=== PATIENT | male | born 1960 | race African-American/Black ===

== ENCOUNTER 2018-02-20 22:33 | Emergency (ER) | payer SELFPAY ==
[~2018-02-20] VITALS: Ht 185.4 cm; Wt 121.1 kg
[2018-02-20 23:12] LABS: BASO # 0.1 x10^3/uL (0.0-0.2); BASO % 1 % (0-3); EOS # 0.5 x10^3/uL (0.0-0.7); EOS % 7 % (0-3); HEMATOCRIT 46.8 % (39.0-53.0); HEMOGLOBIN 15.5 g/dL (13.0-17.5); LYMPH # 2.6 x10^3/uL (1.0-4.8); LYMPH % 38 % (24-48); MEAN CORPUSCULAR HEMOGLOBIN 31 pg (25-35); MEAN CORPUSCULAR HGB CONC 33 g/dL (31-37); MEAN CORPUSCULAR VOLUME 93 fL (79-100); MONO # 0.5 x10^3/uL (0.0-1.1); MONO % 7 % (0-9); NEUT # 3.3 x10^3uL (1.8-7.7); NEUT % 47 % (31-73); PLATELET COUNT 235 x10^3/uL (140-400); RED BLOOD COUNT 5.05 x10^6/uL (4.30-5.70); RED CELL DISTRIBUTION WIDTH 13.4 % (11.5-14.5)
[2018-02-20 23:28] LABS: ALBUMIN 4.1 g/dL (3.4-5.0); ALBUMIN/GLOBULIN RATIO 1.1 (1.0-1.7); CALCIUM 8.8 mg/dL (8.5-10.1); CREATININE 1.6 mg/dL (0.7-1.3); GFR 54.6; MAGNESIUM 2.1 mg/dL (1.8-2.4); POTASSIUM 3.3 mmol/L (3.5-5.1); TOTAL BILIRUBIN 0.6 mg/dL (0.2-1.0); TOTAL PROTEIN 7.9 g/dL (6.4-8.2)
--- NOTE | 2018-02-20 23:49 | RAD ---
PORTABLE CHEST 1V dated 02/20/2018 10:24 PM. Comparison: None. Clinical Indication: Palpitations. Findings: Single upright portable exam performed. Heart and mediastinal contours are within normal limits. Lungs are clear without focal consolidation. Vascular interstitium within normal limits. No pleural effusion or pneumothorax. Impression: Negative portable chest. Electronically signed by: Garett Sanders MD (02/20/2018 11:46 PM) [facility]
[2018-02-21 00:11] VITALS: BP 128/75
--- NOTE | 2018-02-21 00:22 | PHYS DOC ---
Past History Past Medical History: Other Past Surgical History: Other Alcohol Use: None Drug Use: None Adult General Chief Complaint Chief Complaint: Palpitations HPI HPI Patient is a 57-year-old male who presents with complaint of palpitations that he indicates had occurred yesterday and again occurred today. He indicates that he has been using some ndie-qot-ottssah supplements and states that after reading the potential side effects, he indicates that some of those side effects or what he's been experiencing. He states that it feels like his heart is beating very fast. He denies any actual chest pain. He also denies any nausea or vomiting. Patient states that nothing seems to worsen or improve the symptoms. He states that currently the palpitations are gone. He states that during the palpitations however he gets a little bit lightheaded and feels like he might pass out. He indicates that he did not actually pass out however. He states that the symptoms of palpitations lasted for about 10-15 minutes and then resolved spontaneously. Review of Systems Review of Systems Constitutional: Denies fever or chills [] Respiratory: Denies cough or shortness of breath [] Cardiovascular: Complains of palpitations[] GI: Denies abdominal pain, nausea, vomiting [] Neurologic: Denies headache, focal weakness or sensory changes [] All other systems were reviewed and found to be within normal limits, except as documented in this note. Current Medications Current Medications Current Medications Medications (Trade) Dose Ordered Sig/[facility] Start Time Stop Time Status Last Admin Dose Admin Potassium Chloride (Klor-Con) 20 meq 1X ONCE 02/21/18 00:15 02/21/18 00:16 UNV Physical Exam Physical Exam Constitutional: Well developed, well nourished, no acute distress, non-toxic appearance. [] HENT: Normocephalic, atraumatic, bilateral external ears normal, oropharynx moist, no oral exudates, nose normal. [] Eyes: PERRLA, EOMI, conjunctiva normal, no discharge. [] Neck: Normal range of motion, no tenderness, supple, no stridor. [] Cardiovascular:Heart rate regular rhythm [] Lungs & Thorax: Bilateral breath sounds clear to auscultation [] Abdomen: Bowel sounds normal, soft, no tenderness. [] Skin: Warm, dry, no erythema, no rash. [] Extremities: No tenderness, no cyanosis, no clubbing, ROM intact, no edema. [] Neurologic: Alert and oriented X 3, normal motor function, normal sensory function, no focal deficits noted. [] Current Patient Data Vital Signs Vital Signs Date Time Temp Pulse Resp B/P (MAP) Pulse Ox O2 Delivery O2 Flow Rate FiO2 02/20/18 22:42 82 20 99 Room Air Lab Results Laboratory Tests Test 02/20/18 22:40 White Blood Count 7.0 x10^3/uL (4.0-11.0) Red Blood Count 5.05 x10^6/uL (4.30-5.70) Hemoglobin 15.5 g/dL (13.0-17.5) Hematocrit 46.8 % (39.0-53.0) Mean Corpuscular Volume 93 fL (79-100) Mean Corpuscular Hemoglobin 31 pg (25-35) Mean Corpuscular Hemoglobin Concent 33 g/dL (31-37) Red Cell Distribution Width 13.4 % (11.5-14.5) Platelet Count 235 x10^3/uL (140-400) Neutrophils (%) (Auto) 47 % (31-73) Lymphocytes (%) (Auto) 38 % (24-48) Monocytes (%) (Auto) 7 % (0-9) Eosinophils (%) (Auto) 7 % (0-3) H Basophils (%) (Auto) 1 % (0-3) Neutrophils # (Auto) 3.3 x10^3uL (1.8-7.7) Lymphocytes # (Auto) 2.6 x10^3/uL (1.0-4.8) Monocytes # (Auto) 0.5 x10^3/uL (0.0-1.1) Eosinophils # (Auto) 0.5 x10^3/uL (0.0-0.7) Basophils # (Auto) 0.1 x10^3/uL (0.0-0.2) Sodium Level 141 mmol/L (136-145) Potassium Level 3.3 mmol/L (3.5-5.1) L Chloride Level 103 mmol/L (98-107) Carbon Dioxide Level 28 mmol/L (21-32) Anion Gap 10 (6-14) Blood Urea Nitrogen 15 mg/dL (8-26) Creatinine 1.6 mg/dL (0.7-1.3) H Estimated GFR (Cockcroft-Gault) 54.6 BUN/Creatinine Ratio 9 (6-20) Glucose Level 143 mg/dL (70-99) H Calcium Level 8.8 mg/dL (8.5-10.1) Magnesium Level 2.1 mg/dL (1.8-2.4) Total Bilirubin 0.6 mg/dL (0.2-1.0) Aspartate Amino Transferase (AST) 35 U/L (15-37) Alanine Aminotransferase (ALT) 35 U/L (16-63) Alkaline Phosphatase 73 U/L (46-116) Troponin I Quantitative < 0.017 ng/mL (0-0.055) XL-Vpx-S-Type Natriuretic Peptide 13 pg/mL (0-124) Total Protein 7.9 g/dL (6.4-8.2) Albumin 4.1 g/dL (3.4-5.0) Albumin/Globulin Ratio 1.1 (1.0-1.7) EKG EKG EKG demonstrates a normal sinus rhythm with rate of 83. No significant ST segment abnormalities are noted.[] Radiology/Procedures Radiology/Procedures [] Impressions: Chest x-ray demonstrates no acute process. Course & Med Decision Making Course & Med Decision Making Pertinent Labs and Imaging studies reviewed. (See chart for details) [] Dragon Disclaimer Dragon Disclaimer This electronic medical record was generated, in whole or in part, using a voice recognition dictation system. Departure Departure: Impression: Primary Impression: Palpitations Disposition: 01 HOME, SELF-CARE Condition: STABLE Referrals: PCP,NO (PCP) Patient Instructions: Palpitations Additional Instructions: Follow-up with your primary care provider in the next few days. Return to the emergency room if you have acute worsening of symptoms. JOSE E GARCÍA Jr. DO Feb 21, 2018 00:22
[2018-02-21 00:30] LABS: BACTERIA,URINE 0 /HPF (0-FEW); BILIRUBIN,URINE NEG (NEG); CLARITY,URINE CLEAR; COLOR,URINE YELLOW; GLUCOSE,URINE NEG (NEG); NITRITE,URINE NEG (NEG); UROBILINOGEN,URINE 0.2 mg/dL (0.2 mg/dL); WBC,URINE OCC /HPF (0-4)
[2018-02-21] MEDS ORDERED: POTASSIUM CHLORIDE 20 MEQ TABLET.ER. PO ONE (01:00)
--- NOTE | 2018-02-21 14:14 | EKG ---
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 POSSIBLY ABNORMAL ECG RI6.01 Unconfirmed report No previous ECG available for comparison Electronically Signed On 02-21-2018 16:01:56 MANAGER OF SOFTWARE by Rafat Jacobo
== END 2018-02-21 00:43 | disposition home or self-care (01) ==
LOC: ER 22:33
DX: R00.2 Palpitations (principal); R42 Dizziness and giddiness
CPT/HCPCS: 36415; 71045; 80053; 81001; 83735; 83880; 84484; 85025; 93005; 99285

== ENCOUNTER 2018-07-04 16:55 | Emergency (ER) | payer OTHER ==
[~2018-07-04] VITALS: Ht 185.4 cm; Wt 119.3 kg
[2018-07-04 17:38] LABS: BASO # 0.2 x10^3/uL (0.0-0.2); BASO % 2 % (0-3); EOS % 12 % (0-3); HEMATOCRIT 43.5 % (39.0-53.0); HEMOGLOBIN 14.5 g/dL (13.0-17.5); LYMPH # 2.1 x10^3/uL (1.0-4.8); LYMPH % 27 % (24-48); MEAN CORPUSCULAR HEMOGLOBIN 31 pg (25-35); MEAN CORPUSCULAR HGB CONC 33 g/dL (31-37); MEAN CORPUSCULAR VOLUME 93 fL (79-100); MONO # 0.7 x10^3/uL (0.0-1.1); MONO % 9 % (0-9); NEUT # 3.9 x10^3uL (1.8-7.7); NEUT % 50 % (31-73); PLATELET COUNT 229 x10^3/uL (140-400); RED BLOOD COUNT 4.68 x10^6/uL (4.30-5.70); RED CELL DISTRIBUTION WIDTH 13.6 % (11.5-14.5); WHITE BLOOD COUNT 7.8 x10^3/uL (4.0-11.0)
--- NOTE | 2018-07-04 17:45 | PHYS DOC ---
Past History Past Medical History: Other (ELIAN SINGH MD) Past Surgical History: Other (ELIAN SINGH MD) Smoking: Non-smoker Alcohol Use: None Drug Use: None (ELIAN SINGH MD) Adult General Chief Complaint Chief Complaint: DIZZY/LIGHT HEADED HPI HPI Patient is a 58 year old male who presents with complaining of episodes of dizziness and blurred vision. Patient states he felt dizzy after standing up at his work at 10:30 this morning with left blurred vision. Patient states he had chest tightness at the same time with marked shortness of breath and nausea with palpitation that last about 15 minutes and resolved spontaneously. Patient states he had another episode of the same symptom@1600 that last about 15 minutes. Patient states he does not feel like his normal yet but he does not have dizziness or blurred vision anymore. Patient states he had history of palpitation and was seen this emergency room but denied history of blurred vision and chest pain. Patient denies using drugs or prescribed medication and takes qyyx-ajp-zicyrqr medication for joint pain. (ELIAN SINGH MD) Review of Systems Review of Systems Constitutional: Denies fever or chills [] Eyes: Denies change in visual acuity, redness, or eye pain, reports blurred vision [] HENT: Denies nasal congestion or sore throat [] Respiratory: Denies cough or shortness of breath [] Cardiovascular: No additional information not addressed in HPI [] GI: Denies abdominal pain, nausea, vomiting, bloody stools or diarrhea [] : Denies dysuria or hematuria [] Musculoskeletal: Denies back pain or joint pain [] Integument: Denies rash or skin lesions [] Neurologic: Denies headache, focal weakness or sensory changes [] Endocrine: Denies polyuria or polydipsia [] All other systems were reviewed and found to be within normal limits, except as documented in this note. (ELIAN SINGH MD) Allergies Allergies Allergies Coded Allergies Type Severity Reaction Last Updated Verified Penicillins Allergy Intermediate 07/04/18 Yes (ELIAN SINGH MD) Physical Exam Physical Exam Constitutional: Well nourished, mild distress, non-toxic appearance. [] HENT: Normocephalic, atraumatic, bilateral external ears normal, oropharynx moist, no oral exudates, nose normal. [] Eyes: PERRLA, EOMI, conjunctiva normal, no discharge. [] Neck: Normal range of motion, no tenderness, supple, no stridor. [] Cardiovascular:Heart rate regular rhythm, no murmur [] Lungs & Thorax: Bilateral breath sounds clear to auscultation [] Abdomen: Bowel sounds normal, soft, no tenderness, no masses, no pulsatile masses. [] Skin: Warm, dry, no erythema, no rash. Multiple scars of self cutting on bilateral upper extremities.[] Back: No tenderness, no CVA tenderness. [] Extremities: No tenderness, no cyanosis, no clubbing, ROM intact, no edema. [] Neurologic: Alert and oriented X 3, normal motor function, normal sensory function, no focal deficits noted. [] Psychologic: Affect anxious, judgement normal, mood normal. [] (ELIAN SINGH MD) Current Patient Data Vital Signs Vital Signs Date Time Temp Pulse Resp B/P (MAP) Pulse Ox O2 Delivery O2 Flow Rate FiO2 07/04/18 17:11 98.2 70 18 99 Room Air (ELIAN SINGH MD) EKG EKG Take interpreted by me. EKG at 1734 showed normal sinus rhythm at rate of 65, left fourth axis, no acute ST and T-wave abnormalities. (ELIAN SINGH MD) Radiology/Procedures Radiology/Procedures [] (ELIAN SINGH MD) Course & Med Decision Making Course & Med Decision Making Pertinent Labs and Imaging studies are pending (see chart for details) Evaluation of patient in ER showed 58-year-old male patient presented with complaining of episodes of dizziness, blurred vision, chest pain on palpitation that lasted for about 15 minutes and repeated twice today. Patient had unremarkable physical exam. Labs and CT head and x-rays pending. Patient care transferred to Dr. Adams at 1800. (ELIAN SINGH MD) Course & Med Decision Making Patient's labs are unremarkable. His troponin is negative. His chest x-rays negative. His head CT is negative. Sounds like the patient might be having intermittent palpitations. He is taking some supplements or oeyk-ujs-vyggowy. I have advised that he discussed these with his primary care physician and also explore the possibility of an event monitor. I do not have any recent previous medical hospital at this time. If his symptoms return and do not go away, I have advised that he return for further evaluation. He is stable for discharge at this time. (JOSE LUIS ADAMS DO) Dragon Disclaimer Dragon Disclaimer This electronic medical record was generated, in whole or in part, using a voice recognition dictation system. (ELIAN SINGH MD) Departure Departure: Impression: Primary Impression: Dizziness Additional Impressions: Chest pain Blurred vision, left eye Palpitations Referrals: BRIDGETTE BENITEZ MD (PCP) Patient Instructions: Dizziness, Bjcc-zd-Uhae, Palpitations, Svkm-oh-Ncen Problem Qualifiers Additional Impressions: Chest pain Chest pain type: unspecified Qualified Codes: R07.9 - Chest pain, unspecified ELIAN SINGH MD Jul 04, 2018 17:45 JOSE LUIS ADAMS DO Jul 04, 2018 18:50
[2018-07-04 18:00] LABS: ALBUMIN 3.7 g/dL (3.4-5.0); ALBUMIN/GLOBULIN RATIO 1.2 (1.0-1.7); CALCIUM 8.7 mg/dL (8.5-10.1); CREATININE 1.3 mg/dL (0.7-1.3); GFR 69.1; MAGNESIUM 1.9 mg/dL (1.8-2.4); POTASSIUM 3.8 mmol/L (3.5-5.1); TOTAL BILIRUBIN 0.4 mg/dL (0.2-1.0); TOTAL PROTEIN 6.7 g/dL (6.4-8.2)
--- NOTE | 2018-07-04 18:05 | RAD ---
EXAM: CT Head without IV contrast CLINICAL HISTORY: Dizziness, blurred vision, chest pain COMPARISON: None. TECHNIQUE: Routine CT of the head without contrast. Soft tissues and bone windows were reviewed. PQRS compliance statement - One or more of the following individualized dose reduction techniques were utilized for this study: 1. Automated exposure control 2. Adjustment of the mA and/or kV according to patient size 3. Use of iterative reconstruction technique FINDINGS: There is no evidence of hemorrhage, mass or extra-axial fluid collection. Clark-white differentiation is maintained with no evidence of edema. There is no mass effect or shift of the intracranial structures. The ventricles, basilar cisterns and cortical sulci are normal in size and configuration for the patients stated age. The cerebellum and brainstem are unremarkable. The calvarium demonstrates no evidence of fracture or focal lesion. There is normal aeration of the visualized paranasal sinuses and mastoid air cells. The visualized portions of the orbits are normal. IMPRESSION: No evidence for acute intracranial process. Electronically signed by: Beka Odonnell MD (07/04/2018 6:02 PM) [facility]
--- NOTE | 2018-07-04 18:09 | RAD ---
EXAM: PA and Lateral Views of the Chest DATE: 07/04/2018 5:50 PM INDICATION: Chest pain COMPARISON: 02/20/2018 FINDINGS: The heart is not enlarged. Mediastinal and hilar contours are normal. No focal parenchymal airspace opacity. No pleural effusion or pneumothorax. IMPRESSION: 1. No radiographic evidence for acute cardiopulmonary process. Electronically signed by: Beka Odonnell MD (07/04/2018 6:06 PM) [facility]
[2018-07-04 18:25] VITALS: BP 119/80
[2018-07-04 18:32] LABS: AMPHETAMINE/METHAMPHETAMINE NEG (NEG); BARBITURATES NEG (NEG); BENZODIAZEPINES NEG (NEG); CANNABINOIDS NEG (NEG); COCAINE NEG (NEG); METHADONE NEG (NEG); OPIATES NEG (NEG); PHENCYCLIDINE NEG (NEG)
--- NOTE | 2018-07-05 14:23 | EKG ---
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
== END 2018-07-04 18:55 | disposition home or self-care (01) ==
LOC: ER 16:55
DX: R42 Dizziness and giddiness (principal); R07.89 Other chest pain; H53.8 Other visual disturbances; R00.2 Palpitations; Z88.0 Allergy status to penicillin
CPT/HCPCS: 36415; 70450; 71046; 80053; 80307; 82550; 83735; 83880; 84484; 85025; 93005; 99284-25

== ENCOUNTER 2020-05-03 07:14 | Emergency (ER) | payer SELFPAY ==
[~2020-05-03] VITALS: Ht 185.4 cm; Wt 280.0 kg
[2020-05-03 07:33] VITALS: BP 140/85
--- NOTE | 2020-05-03 07:52 | PHYS DOC ---
Past History Past Medical History: Hypertension Past Surgical History: Other Alcohol Use: None Drug Use: None General Adult EDM: Chief Complaint: HYPERTENSION HPI: HPI: Patient is a 59-year-old male coming in for evaluation of high blood pressure. Patient states that he had a high blood pressure reading at home with a systolic of 174. Has been complaining of palpitations over the past week. Per chart review patient he has had intermittent palpitations and 2 prior ED visits with negative work-up. Patient was supposed to be getting a Holter monitor via his primary care but was having scheduling conflicts with getting it done. Denies any stimulant or supplement use. Denies any medications, denies any drug or tobacco use. States that he sometimes gets lightheaded and had a difficult time getting comfortable last night due to palpitations. Denies any chest pain, shortness of breath, lower extremity edema. Patient states states he has had increased chest recently but otherwise has been well. Has family history of hypertension in mother. Review of Systems: Review of Systems: All other systems within normal limits except for as noted in the HPI Allergies: Allergies: Allergies Coded Allergies Type Severity Reaction Last Updated Verified Penicillins Allergy Intermediate 07/04/18 Yes Physical Exam: PE: Constitutional: Well developed, well nourished, no acute distress, non-toxic appearance. [] HENT: Normocephalic, atraumatic, bilateral external ears normal, nose normal. [] Eyes: PERRLA, conjunctiva normal, no discharge. [] Neck: No rigidity, supple, no stridor. [] Cardiovascular: Regular rate and rhythm, brisk cap refill [] Lungs & Thorax: Non labored symmetric respirations, no tachypnea or respiratory distress [] Abdomen: Soft, nondistended. Skin: Warm, dry, no erythema, no rash. [] Back: Unremarkable Extremities: No deformities, range of motion grossly intact, no lower extremity edema [] Neurologic: Alert and oriented X 3, no focal deficits noted. [] Psychologic: Affect normal, judgement normal, mood normal. [] Current Patient Data: Vital Signs: Vital Signs Date Time Temp Pulse Resp B/P (MAP) Pulse Ox O2 Delivery O2 Flow Rate FiO2 05/03/20 07:33 98.4 60 20 140/85 (103) 96 Room Air EKG: EKG: Normal sinus rhythm, heart rate 60 bpm, normal axis, no ectopy, normal intervals. No ST elevation or depression [] Radiology/Procedures: Radiology/Procedures: [] Heart Score: Risk Factors: Risk Factors: DM, Current or recent (<one month) smoker, HTN, HLP, family history of CAD, obesity. Risk Scores: Score 0 - 3: 2.5% MACE over next 6 weeks - Discharge Home Score 4 - 6: 20.3% MACE over next 6 weeks - Admit for Clinical Observation Score 7 - 10: 72.7% MACE over next 6 weeks - Early Invasive Strategies Course & Med Decision Making: Course & Med Decision Making patient's blood pressure is 140/85. Discussed treatment of high blood pressure, patient is declining any labs or further work-up be done would like to follow-up with his primary care provider for evaluation of hypertension and palpitations Dragon Disclaimer: Coty Disclaimer: This electronic medical record was generated, in whole or in part, using a voice recognition dictation system. Departure Departure: Impression: Primary Impression: Borderline high blood pressure Disposition: 01 DC HOME SELF CARE/HOMELESS Condition: STABLE Referrals: BRIDGETTE BENITEZ MD (PCP) Patient Instructions: How to Take Your Blood Pressure, Nagd-nn-Nwdk TAI ALLISON MD May 03, 2020 07:52
--- NOTE | 2020-05-03 10:29 | EKG ---
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
== END 2020-05-03 08:00 | disposition home or self-care (01) ==
LOC: ER 07:14
DX: R03.0 Elevated blood-pressure reading, without diagnosis of hypertension (principal); R00.2 Palpitations; R42 Dizziness and giddiness; I10 Essential (primary) hypertension; Z98.890 Other specified postprocedural states; Z88.0 Allergy status to penicillin
CPT/HCPCS: 93005; 99283

== ENCOUNTER 2021-07-23 23:08 | Emergency (ER) | payer OTHER ==
[~2021-07-23] VITALS: Ht 185.4 cm; Wt 134.7 kg
--- NOTE | 2021-07-23 23:26 | EKG ---
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
--- NOTE | 2021-07-23 23:46 | RAD ---
EXAM: AP View of the chest DATE: 07/23/2021 11:25 PM INDICATION: Reason: palpitations / Spl. Instructions: / History: COMPARISON: 07/04/2018 FINDINGS: The heart is not enlarged. Mediastinal and hilar contours are normal. No focal parenchymal airspace opacity. Trace interstitial prominence new compared to 07/04/2018 No pleural effusion or pneumothorax. IMPRESSION: 1. Trace interstitial prominence possibly projectional/artifactual or atypical infectious or inflamm atory process. Electronically signed by: Beka Odonnell MD (07/23/2021 11:44 PM) [facility]
[2021-07-23] MEDS ORDERED: HYDR50TA9 PO (23:52)
[2021-07-23] MEDS ORDERED: ASPI-630 PO (23:52)
[2021-07-24 00:08] LABS: BASO # 0.2 x10^3/uL (0.0-0.2); BASO % 2 % (0-3); EOS # 0.7 x10^3/uL (0.0-0.7); EOS % 9 % (0-3); HEMATOCRIT 46.5 % (39.0-53.0); HEMOGLOBIN 15.4 g/dL (13.0-17.5); LYMPH # 2.4 x10^3/uL (1.0-4.8); LYMPH % 30 % (24-48); MEAN CORPUSCULAR HEMOGLOBIN 31 pg (25-35); MEAN CORPUSCULAR HGB CONC 33 g/dL (31-37); MEAN CORPUSCULAR VOLUME 94 fL (79-100); MONO # 0.7 x10^3/uL (0.0-1.1); MONO % 8 % (0-9); NEUT # 4.2 x10^3uL (1.8-7.7); NEUT % 51 % (31-73); PLATELET COUNT 241 x10^3/uL (140-400); RED BLOOD COUNT 4.94 x10^6/uL (4.30-5.70); RED CELL DISTRIBUTION WIDTH 14.1 % (11.5-14.5); WHITE BLOOD COUNT 8.2 x10^3/uL (4.0-11.0)
[2021-07-24 00:16] LABS: CALCIUM 9.2 mg/dL (8.5-10.1); CREATININE 1.5 mg/dL (0.7-1.3); POTASSIUM 3.5 mmol/L (3.5-5.1)
[2021-07-24 00:22] LABS: ALBUMIN 3.6 g/dL (3.4-5.0); TOTAL BILIRUBIN 0.6 mg/dL (0.2-1.0); TOTAL PROTEIN 7.3 g/dL (6.4-8.2)
--- NOTE | 2021-07-24 00:37 | PHYS DOC ---
Past History Past Medical History: Hypertension Additional Past Medical Histor: Palpatations, Gout, Past Surgical History: Other Additional Past Surgical Histo: Back surgery Alcohol Use: None Drug Use: None General Adult EDM: Chief Complaint: Palpitations HPI: HPI: 61-year-old male presents with palpitations. Patient has been feeling has been having palpitations for about an hour prior to arrival. He is also had some tingling in his left arm. This concerned him so he came into the emergency room. He denies overt chest pain, diaphoresis, or shortness of breath. He just feels like his heart is beating funny. Patient denies fever or chills. He is on blood pressure medication which is a new prescription for him. Review of Systems: Review of Systems: Constitutional: Denies fever or chills Eyes: Denies change in visual acuity HENT: Denies nasal congestion or sore throat Respiratory: Denies cough or shortness of breath Cardiovascular: Palpitations. Denies chest pain or edema GI: Denies abdominal pain, nausea, vomiting, bloody stools or diarrhea : Denies dysuria Musculoskeletal: Denies back pain or joint pain Integument: Denies rash Neurologic: Denies headache, focal weakness or sensory changes Endocrine: Denies polyuria or polydipsia Lymphatic: Denies swollen glands Psychiatric: Denies depression or anxiety Allergies: Allergies: Allergies Coded Allergies Type Severity Reaction Last Updated Verified Penicillins Allergy Intermediate 07/04/18 Yes Physical Exam: PE: Constitutional: Well developed, well nourished, morbidly obese, no acute distress, non-toxic appearance. [] HENT: Normocephalic, atraumatic, bilateral external ears normal, oropharynx moist, no oral exudates, nose normal. [] Eyes: PERRLA, EOMI, conjunctiva normal, no discharge. [] Neck: Normal range of motion, no tenderness, supple, no stridor. [] Cardiovascular: Heart rate 66, regular rhythm, no murmur [] Lungs & Thorax: Bilateral breath sounds clear to auscultation [] Abdomen: Bowel sounds normal, soft, no tenderness, no masses, no pulsatile masses. [] Skin: Warm, dry, no erythema, no rash. [] Back: No tenderness, no CVA tenderness. [] Extremities: No tenderness, no cyanosis, no clubbing, ROM intact, no edema. [] Neurologic: Alert and oriented X 3, normal motor function, normal sensory function, no focal deficits noted. [] Psychologic: Affect normal, judgement normal, mood normal. [] Current Patient Data: Labs: Laboratory Tests Test 07/23/21 23:20 White Blood Count 8.2 x10^3/uL (4.0-11.0) Red Blood Count 4.94 x10^6/uL (4.30-5.70) Hemoglobin 15.4 g/dL (13.0-17.5) Hematocrit 46.5 % (39.0-53.0) Mean Corpuscular Volume 94 fL (79-100) Mean Corpuscular Hemoglobin 31 pg (25-35) Mean Corpuscular Hemoglobin Concent 33 g/dL (31-37) Red Cell Distribution Width 14.1 % (11.5-14.5) Platelet Count 241 x10^3/uL (140-400) Neutrophils (%) (Auto) 51 % (31-73) Lymphocytes (%) (Auto) 30 % (24-48) Monocytes (%) (Auto) 8 % (0-9) Eosinophils (%) (Auto) 9 % (0-3) H Basophils (%) (Auto) 2 % (0-3) Neutrophils # (Auto) 4.2 x10^3uL (1.8-7.7) Lymphocytes # (Auto) 2.4 x10^3/uL (1.0-4.8) Monocytes # (Auto) 0.7 x10^3/uL (0.0-1.1) Eosinophils # (Auto) 0.7 x10^3/uL (0.0-0.7) Basophils # (Auto) 0.2 x10^3/uL (0.0-0.2) Vital Signs: Vital Signs Date Time Temp Pulse Resp B/P (MAP) Pulse Ox O2 Delivery O2 Flow Rate FiO2 07/23/21 23:16 98.6 62 18 160/83 (108) 100 Room Air EKG: EKG: Sinus rhythm, rate 66, leftward axis, no ST elevation or depression. [] Radiology/Procedures: Radiology/Procedures: [] Heart Score: C/O Chest Pain: No Risk Factors: Risk Factors: DM, Current or recent (<one month) smoker, HTN, HLP, family history of CAD, obesity. Risk Scores: Score 0 - 3: 2.5% MACE over next 6 weeks - Discharge Home Score 4 - 6: 20.3% MACE over next 6 weeks - Admit for Clinical Observation Score 7 - 10: 72.7% MACE over next 6 weeks - Early Invasive Strategies Course & Med Decision Making: Course & Med Decision Making Pertinent Labs and Imaging studies reviewed. (See chart for details) The patient's EKG is unremarkable. His labs are unremarkable except for creatinine 1.5 and a blood sugar of 225. His troponin is negative. Repeat troponin is lower. He has had some occasional PVCs on the monitor though none on his EKG. the patient does not appear to have a life-threatening illness at this time. I have encouraged him to follow-up with his primary physician tomorrow. He is stable for discharge at this time. [] Dragon Disclaimer: Dragon Disclaimer: This electronic medical record was generated, in whole or in part, using a voice recognition dictation system. Departure Departure: Impression: Primary Impression: Palpitations Disposition: HOME / SELF CARE / HOMELESS Condition: STABLE Referrals: JAIDEN MURO DO (PCP) Patient Instructions: Palpitations, Szbc-ap-Oynr JOSE LUIS ADAMS DO Jul 24, 2021 00:37
[2021-07-24 02:25] VITALS: BP 130/70
== END 2021-07-24 02:25 | disposition home or self-care (01) ==
LOC: ER 23:08
DX: R00.2 Palpitations (principal); R20.2 Paresthesia of skin; I10 Essential (primary) hypertension
CPT/HCPCS: 36415; 71045; 80053; 84484; 85025; 93005; 99285

== ENCOUNTER → 2021-09-08 | Emergency (ER) | payer OTHER ==
[~2021-09-08] MED LIST: ASPI-630 PO; HYDR50TA9 PO
== END | disposition home or self-care (01) ==
LOC: ER 22:45
DX: R06.02 Shortness of breath (principal); R20.2 Paresthesia of skin; I10 Essential (primary) hypertension; Z88.0 Allergy status to penicillin
CPT/HCPCS: 36415; 71045; 84484; 99284